=== PATIENT | male | born 1995 | race Native Hawaiian/Other Pacific Islander ===

== ENCOUNTER 2018-01-13 11:26 | Outpatient (CLI) | payer SELFPAY ==
--- NOTE | 2018-01-13 11:44 | XRay Report ---
CHEST TWO VIEWS: 01/13/18 11:26:00 CLINICAL: Cough. COMPARISON: None FINDINGS: Normal heart and pulmonary vasculature. The lungs are normally expanded and clear. The bones and soft tissues are normal. IMPRESSION: Normal chest.
== END 2018-01-13 11:27 | disposition home or self-care (01) ==
LOC: SPVIMAG 11:26
DX: R76.11 Nonspecific reaction to tuberculin skin test without active tuberculosis (principal)
CPT/HCPCS: 71046